=== PATIENT | male | born 1945 | race Caucasian/White ===

== ENCOUNTER 2016-10-02 17:22 | Outpatient (CLI) | payer OTHER ==
[2012-10-18 07:07] VITALS: TEMP 100
[2015-10-11 10:56] VITALS: BMI 29.7
== END 2016-10-02 17:23 | disposition home or self-care (01) ==
LOC: AMBL 17:22
PROVIDERS: ATTEND Emergency Medicine
DX: R50.9 Fever, unspecified (principal); R11.2 Nausea with vomiting, unspecified; R19.7 Diarrhea, unspecified; C43.9 Malignant melanoma of skin, unspecified

== ENCOUNTER 2016-10-03 13:58 | Outpatient (CLI) ==
[2012-10-18 07:07] VITALS: TEMP 100
[2015-10-11 10:56] VITALS: BMI 29.7
== END 2016-10-03 14:19 ==
LOC: AMBL 13:58
PROVIDERS: ATTEND Internal Medicine
DX: R50.9 Fever, unspecified (principal)

== ENCOUNTER 2017-10-14 09:01 | Emergency (ER) ==
[2017-10-14 09:06] VITALS: BP 196/80; TEMP 100.3; BMI 27.7
--- NOTE | 2017-10-14 09:20 | ED.PDOC ---
General ED Provider: Dr. ANSELMO KHANNA Chief Complaint: Tooth Problem Stated Complaint: DENTAL PAIN Time Seen by Physician: 09:04 Mode of Arrival: Walk-In Information Source: Patient Exam Limitations: No limitations Primary Care Provider: GILMAR MORALES Nursing and Triage Documentation Reviewed and Agree: Yes Reviewed sepsis parameters & appropriate labs ordered?: Yes System Inflammatory Response Syndrome: Not Applicable Sepsis Protocol: For patient's 13 years and over: Temp is 96.8 and below OR 101 and greater Pulse >90 BPM Resp >20/minute Acutely Altered Mental Status Are patient's symptoms suggestive of a new infection, such as: -Pneumonia -Skin, Soft Tissue -Endocarditis -UTI -Bone, Joint Infection -Implantable Device -Acute Abdominal Infection -Wound Infection -Meningitis -Blood Stream Catheter Infection -Unknown EENT Complaint Exam - Dental/Oral Complaint/Exam Mechanism of Injury: No known trauma Onset/Duration: 1 WEEK Symptoms Are: Still present Timing: Constant Initial Severity: Moderate Current Severity: Moderate Character: Reports: Dull, Aching Aggravating: Reports: Heat, Cold, Chewing Alleviating: Reports: None Associated Signs and Symptoms: Denies: Swelling, Discharge, Fever, Foul odor, Foul taste in mouth Related History: Reports: Similar episode Tooth Findings: Present: Normal findings Cervical Lymphadenopathy Present: No Facial Swelling Present: No Bleeding Present: No Oropharynx Findings: Absent: Clots, Active bleeding Septal Hematoma: No Foreign Body Present: No Dysphagia Present: No Drooling Present: No Asymmetrical Tonsillar Swelling Present: No Uvula Midline: Yes Kimberly-tonsillar Fluctuence: No Trismus Present: No Palatal Petechiae Present: No Scarlatinaform Rash Present: No Lesions: Absent: Lip, Gums, Tongue, Buccal Mucosa, Pharynx Exanthem: Absent: Lip, Gums, Tongue, Buccal Mucosa, Pharynx Vesicles: Absent: Lip, Gums, Tongue, Buccal Mucosa, Pharynx Teeth Picture: 1 - DECAY Differential Diagnoses: Dental Caries Review of Systems - Review Of Systems Constitutional: Reports: No symptoms Eyes: Reports: No symptoms Ears, Nose, Mouth, Throat: Reports: No symptoms Respiratory: Reports: No symptoms Cardiac: Reports: No symptoms GI: Reports: No symptoms : Reports: No symptoms Musculoskeletal: Reports: No symptoms Skin: Reports: No symptoms Neurological: Reports: No symptoms Endocrine: Reports: No symptoms Hematologic/Lymphatic: Reports: No symptoms All Other Systems: Reviewed and Negative Past Medical History - Past Medical History Previously Healthy: Yes Endocrine: Reports: Dyslipidemia Cardiovascular: Reports: [place], Hypertension Respiratory: Reports: None Hematological: Reports: None Gastrointestinal: Reports: None Genitourinary: Reports: None Neuro/Psych: Reports: None Musculoskeletal: Reports: None Cancer: Reports: None Other Pertinent Past Medical History: skin excision 3may and 3june"did not get it all" drain out 10/04"f" - Surgical History General Surgical History: Reports: Pacemaker (aicd), Other (INTERNAL DEFIB, MELANOMA) - Family History Family History: Reports: Unknown - Social History Smoking Status: Former smoker Hx Substance Use: No Alcohol Screening: None Physical Exam - Physical Exam Appearance: Well-appearing, No pain distress, Well-nourished Eyes: NEENA, EOMI, Conjunctiva clear ENT: Ears normal, Nose normal, Oropharynx normal Respiratory: Airway patent, Breath sounds clear, Breath sounds equal, Respirations nonlabored Cardiovascular: RRR, Pulses normal, No rub, No murmur GI/: Soft, Nontender, No masses, Bowel sounds normal, No Organomegaly Musculoskeletal: Normal strength, ROM intact, No edema, No calf tenderness Skin: Warm, Dry, Normal color Neurological: Sensation intact, Motor intact, Reflexes intact, Cranial nerves intact, Alert, Oriented Psychiatric: Affect appropriate, Mood appropriate Critical Care Note - Critical Care Note Total Time (mins): 0 Course - Course Vital Signs: Temp Pulse Resp BP Pulse Ox 10/14/17 09:02 100.3 F H 71 20 196/80 H 94 L Departure - Departure Time of Disposition: 09:21 Disposition: HOME SELF-CARE Discharge Problem: Toothache Instructions: Toothache (ED) Condition: Good Pt referred to PMD for follow-up: Yes IPMP verified?: No Additional Instructions: Please call your Family Physician as soon as possible to schedule a follow-up appointment. Prescriptions: Amoxicillin 500 mg PO Q8HR #21 tablet Hydrocodone/Acetaminophen [[place] 10-325 Tablet] 1 each PO Q8HR #12 tablet Allergies/Adverse Reactions: Allergies No Known Allergies Allergy (Verified 10/14/17 09:06) Home Medications: Ambulatory Orders Aspirin [Aspirin EC] 81 mg PO DAILY 10/18/12 Carvedilol [Coreg] 25 mg PO BIDBRS 10/18/12 Fenofibrate Nanocrystallized [Fenofibrate] 145 mg PO DAILY 10/18/12 Lisinopril 40 mg PO DAILY 10/18/12 Nitroglycerin [Nitrostat] 0.4 mg SL PRN PRN 10/18/12 Furosemide [Lasix Tab] 20 mg PO QDAC 10/11/15 Rosuvastatin Calcium 40 mg PO DAILY 10/11/15 Amoxicillin 500 mg PO Q8HR #21 tablet 10/14/17 Apixaban [Eliquis] 5 mg PO DAILY 10/14/17 Folic Acid 1 mg PO DAILY 10/14/17 Hydrocodone/Acetaminophen [[place] 10-325 Tablet] 1 each PO Q8HR #12 tablet
== END 2017-10-14 09:32 | disposition home or self-care (01) ==
LOC: ED 09:01
DX: K08.89 Other specified disorders of teeth and supporting structures (principal); K02.7 Dental root caries
CPT/HCPCS: 99282

== ENCOUNTER 2018-05-12 11:17 | Emergency (ER) | payer OTHER ==
[2018-05-12 11:22] VITALS: BP 130/77; TEMP 97.8; BMI 29.9
--- NOTE | 2018-05-12 11:29 | ED.PDOC ---
General ED Provider: Dr. MARIAJOSE PARKS-ER Chief Complaint: Tooth Problem Stated Complaint: my tooth hurts Time Seen by Physician: 11:27 Mode of Arrival: Walk-In Information Source: Patient Exam Limitations: No limitations Primary Care Provider: GILMAR [place] Nursing and Triage Documentation Reviewed and Agree: Yes Does patient meet sepsis criteria?: No System Inflammatory Response Syndrome: Not Applicable Sepsis Protocol: For patient's 13 years and over: Temp is 96.8 and below OR 101 and greater Pulse >90 BPM Resp >20/minute Acutely Altered Mental Status Are patient's symptoms suggestive of a new infection, such as: -Pneumonia -Skin, Soft Tissue -Endocarditis -UTI -Bone, Joint Infection -Implantable Device -Acute Abdominal Infection -Wound Infection -Meningitis -Blood Stream Catheter Infection -Unknown EENT Complaint Exam - Dental/Oral Complaint/Exam Mechanism of Injury: No known trauma Onset/Duration: several days Symptoms Are: Still present Timing: Constant Initial Severity: Mild Current Severity: Moderate Location: right upper premolar Character: Reports: Dull, Aching, Throbbing Alleviating: Reports: None Associated Signs and Symptoms: Reports: Swelling, Discharge. Denies: Fever, Foul odor, Foul taste in mouth Related History: Reports: Previous tooth problem Facial Swelling Present: No Bleeding Present: No Oropharynx Findings: Absent: Clots, Active bleeding Septal Hematoma: No Foreign Body Present: No Dysphagia Present: No Drooling Present: No Asymmetrical Tonsillar Swelling Present: No Uvula Midline: Yes Kimberly-tonsillar Fluctuence: No Trismus Present: No Differential Diagnoses: Dental Abcess Review of Systems - Review Of Systems Constitutional: Reports: No symptoms Eyes: Reports: No symptoms Ears, Nose, Mouth, Throat: Reports: Mouth pain, Mouth swelling Respiratory: Reports: No symptoms Cardiac: Reports: No symptoms GI: Reports: No symptoms : Reports: No symptoms Musculoskeletal: Reports: No symptoms Skin: Reports: No symptoms Neurological: Reports: No symptoms Endocrine: Reports: No symptoms Hematologic/Lymphatic: Reports: No symptoms All Other Systems: Reviewed and Negative Past Medical History - Past Medical History Previously Healthy: Yes Endocrine: Reports: Dyslipidemia Cardiovascular: Reports: [place], Hypertension Respiratory: Reports: None Hematological: Reports: None Gastrointestinal: Reports: None Genitourinary: Reports: None Neuro/Psych: Reports: None Musculoskeletal: Reports: None Cancer: Reports: None Other Pertinent Past Medical History: skin excision 3may and 3june"did not get it all" drain out 10/04"f" - Surgical History General Surgical History: Reports: Pacemaker (aicd), Other (INTERNAL DEFIB, MELANOMA) - Family History Family History: Reports: Unknown - Social History Smoking Status: Former smoker Hx Substance Use: No Alcohol Screening: None Physical Exam - Physical Exam Appearance: Well-appearing, No pain distress, Well-nourished Pain Distress: Mild Eyes: NEENA ENT: Ears normal, Nose normal, Oropharynx normal (right upper premolar is tender to palpation with erythematous gums) Neck: Supple Respiratory: Airway patent Cardiovascular: RRR GI/: Soft, Nontender, No masses, Bowel sounds normal, No Organomegaly Musculoskeletal: Normal strength, ROM intact, No edema, No calf tenderness Skin: Warm, Dry, Normal color Neurological: Sensation intact, Motor intact, Reflexes intact, Cranial nerves intact, Alert, Oriented Psychiatric: Affect appropriate, Mood appropriate Critical Care Note - Critical Care Note Total Time (mins): 0 Course - Course Vital Signs: Temp Pulse Resp BP Pulse Ox 05/12/18 11:18 97.8 F 68 18 130/77 98 Departure - Departure Time of Disposition: 11:29 Disposition: HOME SELF-CARE Discharge Problem: Dental abscess Instructions: Dental Abscess (ED) Condition: Good Pt referred to PMD for follow-up: Yes IPMP verified?: No Additional Instructions: augmentin 875mg bid x 7 days---norco 5mg q 6hrs prn pain #10---f/u with dentist raul Allergies/Adverse Reactions: Allergies No Known Allergies Allergy (Verified 05/12/18 11:22) Home Medications: Ambulatory Orders Aspirin [Aspirin EC] 81 mg PO DAILY 10/18/12 Carvedilol [Coreg] 25 mg PO BIDBRS 10/18/12 Fenofibrate Nanocrystallized [Fenofibrate] 145 mg PO DAILY 10/18/12 Lisinopril 40 mg PO DAILY 10/18/12 Nitroglycerin [Nitrostat] 0.4 mg SL PRN PRN 10/18/12 Furosemide [Lasix Tab] 20 mg PO QDAC 10/11/15 Rosuvastatin Calcium 40 mg PO DAILY 10/11/15 Apixaban [Eliquis] 5 mg PO DAILY 10/14/17 Folic Acid 1 mg PO DAILY 10/14/17 Disposition Discussed With: Patient, Family
== END 2018-05-12 11:38 | disposition home or self-care (01) ==
LOC: ED 11:17
DX: K08.89 Other specified disorders of teeth and supporting structures (principal); K04.7 Periapical abscess without sinus
CPT/HCPCS: 99282

== ENCOUNTER 2018-09-16 14:26 | Emergency (ER) ==
[2018-09-16 14:33] VITALS: BP 158/78; TEMP 98.3; BMI 29.2
--- NOTE | 2018-09-16 16:11 | ED.PDOC ---
General ED Provider: Dr. ANSELMO KHANNA Chief Complaint: Finger Laceration Stated Complaint: laceration left index with a sharp glass Time Seen by Physician: 14:30 Mode of Arrival: Walk-In Information Source: Patient Exam Limitations: No limitations Primary Care Provider: GILMAR [place] Nursing and Triage Documentation Reviewed and Agree: Yes Does patient meet sepsis criteria?: No If yes, has appropriate treatment been initiated?: No System Inflammatory Response Syndrome: Not Applicable Sepsis Protocol: For patient's 13 years and over: Temp is 96.8 and below OR 101 and greater Pulse >90 BPM Resp >20/minute Acutely Altered Mental Status Are patient's symptoms suggestive of a new infection, such as: -Pneumonia -Skin, Soft Tissue -Endocarditis -UTI -Bone, Joint Infection -Implantable Device -Acute Abdominal Infection -Wound Infection -Meningitis -Blood Stream Catheter Infection -Unknown Skin Complaint Exam - Lac/Torso/Upper Ext. Complaint/Exam Location of Injury: Left (index ) Mechanism of Injury: Laceration Onset/Duration: today Symptoms Are: Still present Initial Severity: Mild Current Severity: None Aggravating: None Alleviating: None Associated Signs and Symptoms: Denies: Fever, Chills, Erythema, Numbness, Tingling Differential Diagnoses: Laceration Review of Systems - Review Of Systems Constitutional: Reports: No symptoms Eyes: Reports: No symptoms Ears, Nose, Mouth, Throat: Reports: No symptoms Respiratory: Reports: No symptoms Cardiac: Reports: No symptoms GI: Reports: No symptoms : Reports: No symptoms Musculoskeletal: Reports: No symptoms Skin: Reports: Other (laceration) Neurological: Reports: No symptoms Endocrine: Reports: No symptoms Hematologic/Lymphatic: Reports: No symptoms All Other Systems: Reviewed and Negative Past Medical History - Past Medical History Previously Healthy: Yes Endocrine: Reports: Dyslipidemia Cardiovascular: Reports: [place], Hypertension Respiratory: Reports: None Hematological: Reports: None Gastrointestinal: Reports: None Genitourinary: Reports: None Neuro/Psych: Reports: None Musculoskeletal: Reports: None Cancer: Reports: None Other Pertinent Past Medical History: skin excision 3may and 3june"did not get it all" drain out 6/"f" - Surgical History General Surgical History: Reports: Pacemaker (aicd), Other (INTERNAL DEFIB, MELANOMA) - Family History Family History: Reports: Unknown - Social History Smoking Status: Former smoker Hx Substance Use: No Alcohol Screening: None Physical Exam - Physical Exam Appearance: Well-appearing, No pain distress, Well-nourished Eyes: NEENA, EOMI, Conjunctiva clear ENT: Ears normal, Nose normal, Oropharynx normal Respiratory: Airway patent, Breath sounds clear, Breath sounds equal, Respirations nonlabored Cardiovascular: RRR, Pulses normal, No rub, No murmur GI/: Soft, Nontender, No masses, Bowel sounds normal, No Organomegaly Musculoskeletal: Normal strength, ROM intact (see photos full R.O.M NOTED ) Skin: Warm, Dry (3mmlac see photos ) Neurological: Sensation intact, Motor intact, Reflexes intact, Cranial nerves intact, Alert, Oriented Psychiatric: Affect appropriate, Mood appropriate Procedures - Laceration/Wound Repair No standard instances Wound Length (cm): 3MM Wound Width: 1MM Wound Depth: 1MM Wound Explored: Clean Wound Prep: Saline, Hibiclens Wound Repaired With: Dermabond Critical Care Note - Critical Care Note Total Time (mins): 0 Course - Course Vital Signs: Temp Pulse Resp BP Pulse Ox 09/16/18 14:26 98.3 F 69 18 158/78 H 96 Departure - Departure Time of Disposition: 16:10 Disposition: HOME SELF-CARE Discharge Problem: Laceration of finger Instructions: Laceration (ED), Skin Adhesive Care (ED) Condition: Good Pt referred to PMD for follow-up: Yes IPMP verified?: No Allergies/Adverse Reactions: Allergies No Known Allergies Allergy (Verified 09/16/18 15:12) Home Medications: Ambulatory Orders Aspirin [Aspirin EC] 81 mg PO DAILY 10/18/12 Carvedilol [Coreg] 25 mg PO BIDBRS 10/18/12 Fenofibrate Nanocrystallized [Fenofibrate] 145 mg PO DAILY 10/18/12 Lisinopril 40 mg PO DAILY 10/18/12 Nitroglycerin [Nitrostat] 0.4 mg SL PRN PRN 10/18/12 Furosemide [Lasix Tab] 20 mg PO QDAC 10/11/15 Rosuvastatin Calcium 40 mg PO DAILY 10/11/15 Apixaban [Eliquis] 5 mg PO DAILY 10/14/17 Folic Acid 1 mg PO DAILY 10/14/17
== END 2018-09-16 16:44 | disposition home or self-care (01) ==
LOC: ED 14:26
DX: S61.211A Laceration without foreign body of left index finger without damage to nail, initial encounter (principal); W25.XXXA Contact with sharp glass, initial encounter
CPT/HCPCS: 99283

== ENCOUNTER 2018-09-19 13:12 | Outpatient (CLI) ==
[2012-10-18 07:07] VITALS: TEMP 100
== END 2018-09-19 13:34 | disposition short-term general hospital (02) ==
LOC: AMBL 13:12
PROVIDERS: ATTEND Internal Medicine
DX: R07.9 Chest pain, unspecified (principal); R06.02 Shortness of breath; I25.2 Old myocardial infarction

== ENCOUNTER 2022-10-06 12:43 | Observation (INO) ==
[2022-10-06 13:47] LABS: BASOPHILS % (AUTO) 0.1 % (0.0-3.0); HEMATOCRIT 41.4 % (42.0-52.0); HEMOGLOBIN 14.4 g/dl (14.0-18.0); IMMATURE GRANULOCYTE % (AUTO) 0.4 % (0.0-5.0); LYMPHOCYTES # (AUTO) 0.2 K/uL (0.60-3.4); LYMPHOCYTES % (AUTO) 2.8 (10.0-50.0); MEAN CORPUSCULAR HEMOGLOBIN 30.1 pg (27.0-31.0); MEAN CORPUSCULAR HGB CONC 34.8 (31.8-35.4); MEAN CORPUSCULAR VOLUME 86.6 fl (80.0-94.0); MONOCYTES # (AUTO) 0.3 K/uL (0.4-2.0); MONOCYTES % (AUTO) 3.4 (0-10); NEUTROPHILS # (AUTO) 7.9 K/ul (2.0-6.9); NEUTROPHILS % (AUTO) 93.3 % (42.2-75.2); PLATELET COUNT 134 10^3/uL (140-440); RDW COEFFICIENT OF VARIATION 14.2 % (11.6-14.8); RED BLOOD COUNT 4.78 10^6/ul (4.70-6.10); WHITE BLOOD COUNT 8.46 K/ul (4.2-10.2)
[2022-10-06 13:49] LABS: ALANINE AMINOTRANSFERASE 26.3 U/L (0-50); ALBUMIN 3.75 g/dL (3.5-5.0); ALKALINE PHOSPHATASE 43.9 U/L (56-119); ASPARTATE AMINO TRANSFERASE 49.1 U/L (17-59); BILIRUBIN,TOTAL 2.08 mg/dL (0.2-1.3); BLOOD UREA NITROGEN 21.2 mg/dL (9-20); CALCIUM 8.58 mg/dL (8.4-10.2); CARBON DIOXIDE 22.6 mmol/L (22-30.0); CHLORIDE 103.7 mmol/L (98-107); CREATININE 1.93 mg/dL (0.60-1.10); GLUCOSE 119.5 mg/dL (74-106); POTASSIUM 3.3 mmol/L (3.5-5.1); SODIUM 134.7 mmol/L (134.5-145); TOTAL PROTEIN 6.61 g/dL (6.3-8.2)
--- NOTE | 2022-10-06 13:51 | DI ---
EXAM: FRONTAL VIEW OF THE CHEST. HISTORY: Chest pain. Fever. COMPARISON: Chest radiograph 10/20/2020. FINDINGS: Stable cardiac pacer/ICD. Normal heart size. Atherosclerotic calcifications of the aorta. Confluent opacities at the left lung base. No visible pleural effusion or pneumothorax. No acute osseous abnormality. Multilevel degenerative spondylosis. IMPRESSION: Left basilar opacities suspicious for pneumonia.
--- NOTE | 2022-10-06 14:07 | ED.PDOC ---
General ED Provider: Dr. JUANCHO KILPATRICK MD Chief Complaint: Non-specific Complaint Stated Complaint: chills Time Seen by Provider: 10/06/22 13:09 Information Source: Patient Primary Care Provider: JASON CARRANZA Nursing and Triage Documentation Reviewed and Agree: Yes Does patient meet sepsis criteria?: No System Inflammatory Response Syndrome: Not Applicable Sepsis Protocol: For patient's 13 years and over: Temp is 96.8 and below OR 101 and greater Pulse >90 BPM Resp >20/minute Acutely Altered Mental Status Are patient's symptoms suggestive of a new infection, such as: -Pneumonia -Skin, Soft Tissue -Endocarditis -UTI -Bone, Joint Infection -Implantable Device -Acute Abdominal Infection -Wound Infection -Meningitis -Blood Stream Catheter Infection -Unknown Review of Systems Review Of Systems Constitutional: Reports Chills All Other Systems: Reviewed and Negative [facility] Medical History (Updated 10/06/22 @ 19:56 by VIVI RODNEY, RN) 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) Cancer C80.1 - Malignant (primary) neoplasm, unspecified (ICD-10) Congestive heart failure I50.9 - Heart failure, unspecified (ICD-10) Hypercholesteremia E78.00 - Pure hypercholesterolemia, unspecified (ICD-10) Hypertension I10 - Essential (primary) hypertension (ICD-10) Family History (Updated 10/06/22 @ 19:56 by VIVI RODNEY, RN) Other No known health problems Social History Smoking and tobacco status: Former smoker Surgical History History of heart surgery Z98.890 - Other specified postprocedural states (ICD-10) History of heart surgery Z98.890 - Other specified postprocedural states (ICD-10) Implantation of cardiac pacemaker Placement of stent in coronary artery Physical Exam Physical Exam Appearance: Reports Well-appearing Ill-appearing: None Pain Distress: None Eyes: Reports NEENA and EOMI ENT: Reports Ears normal and Nose normal Neck: Supple Respiratory: Reports Airway patent, Breath sounds clear and Breath sounds equal Cardiovascular: Reports RRR, Pulses normal, No rub and No murmur GI/: Reports Soft, Nontender, No masses and Bowel sounds normal Musculoskeletal: Reports Normal strength and ROM intact Skin: Reports Warm and Normal color Neurological: Reports Sensation intact and Motor intact Psychiatric: Reports Affect appropriate Interpretation EKG Interpretation Time of EKG #1: 13:27 Rate: Normal Rhythm: Other (vent paced) Ectopy: PVCs [place]: NL Interpretation: no acute ischemia EKG Interpretation By: ED Physician Critical Care Note Critical Care Note Total Critical Care Time (mins): 0 Course Course 10/06/22 13:27 10/06/22 13:27 Orders, Labs, Meds: Lab Review 10/06/22 10/06/22 13:27 16:55 WBC 8.46 RBC 4.78 Hgb 14.4 Hct 41.4 L MCV 86.6 MCH 30.1 MCHC 34.8 RDW Coeff of Tariq 14.2 Plt Count 134 L Immature Gran % (Auto) 0.4 Neut % (Auto) 93.3 H Lymph % (Auto) 2.8 L [place] % (Auto) 3.4 Eos % (Auto) 0.0 Baso % (Auto) 0.1 Neut # (Auto) 7.9 H Lymph # (Auto) 0.2 L [place] # (Auto) 0.3 L Eos # (Auto) 0.0 Baso # (Auto) 0.0 Immature Gran # (Auto) 0.0 Sodium 134.7 Potassium 3.30 L Chloride 103.7 Carbon Dioxide 22.6 Anion Gap 11.70 BUN 21.2 H Creatinine 1.93 H Estimated GFR (MDRD) 34.00 BUN/Creatinine Ratio 10.98 Glucose 119.5 H Calcium 8.58 Total Bilirubin 2.08 H AST 49.1 ALT 26.3 Alkaline Phosphatase 43.9 L Total Protein 6.61 Albumin 3.75 Globulin 2.86 Albumin/Globulin Ratio 1.31 Urine Color [place] Urine Clarity Clear Urine pH 5.5 Ur Specific [place] 1.020 Urine Protein 1+ H Urine Glucose (UA) Negative Urine Ketones Negative Urine Blood 2+ H Urine Nitrite Positive H Urine Bilirubin 1+ H Urine Urobilinogen 2.0 H Ur Leukocyte Esterase 1+ H Urine Microscopic RBC 10-20 Urine Microscopic WBC 2-5 Ur Squamous Epith Cells 0-2 Urine Bacteria 2+ Granular Casts 0-2 Orders Category Date Time Status ADMIT OBSERVATION [PLACE PATIENT OBSERVATION] .TO ADMISSION 10/06/22 17:17 Active MEDSURG (MONITORED BED) EKG-(ED ONLY) Stat CARDIO 10/06/22 13:18 Completed NPO REMINDER: IMAGING ONCE CARE 10/06/22 15:16 Completed TELEMETRY MONITORING TELE CARE 10/06/22 17:17 Active CBC W/ AUTO DIFF Stat LAB 10/06/22 13:27 Completed CMP [COMPREHENSIVE METABOLIC PANEL] Stat LAB 10/06/22 13:27 Completed URINALYSIS C & S IF INDICATED Stat LAB 10/06/22 16:55 Completed URINE CULTURE Stat LAB 10/06/22 16:55 Received Azithromycin Inj [Zithromax] 500 mg Meds 10/06/22 15:13 Discontinued 0.9 % Sodium Chloride [Sodium Chloride] 250 ml IV ONCE Ceftriaxone/D5w 1 gm Premix [Rocephin 1 gm/50 ml D5w] Meds 10/06/22 15:15 Discontinued 1 gm in 50 ml IV ONCE Potassium Chloride [K-Dur] Meds 10/06/22 15:12 Discontinued 40 meq PO ONCE ONE Sodium Chloride 0.9% [Sodium Chloride] 1,000 ml Meds 10/06/22 16:[address] ABDOMEN/PELVIS WO CONTRAST Stat RADS 10/06/22 16:34 Completed CXR [CHEST, 1V AP ONLY] Stat RADS 10/06/22 13:18 Completed U/S ABDOMEN RT UPPER QUAD Stat RADS 10/06/22 15:16 Completed Medications Generic Name Dose Route Start Last Admin Trade Name Freq PRN Reason Stop Dose Admin Apixaban 5 mg 10/06/22 23:00 10/06/22 23:13 Apixaban 5 Mg Tab PO 5 mg BID KARAN Administration Carvedilol 25 mg 10/06/22 23:00 10/06/22 23:13 Carvedilol 12.5 Mg Tablet PO 25 mg BIDAC KARAN Administration Lactated Ringer's 1,000 mls @ 100 mls/hr 10/06/22 19:30 10/06/22 19:57 Lactated Ringers IV 100 mls/hr .Q10H KARAN Administration Rosuvastatin Calcium 40 mg 10/07/22 09:00 Rosuvastatin Calcium 10 Mg Tablet PO DAILY KARAN Discontinued Medications Generic Name Dose Route Start Last Admin Trade Name Freq PRN Reason Stop Dose Admin CEFTRIAXONE/D5W 1 GM PREMIX 1 gm in 50 mls @ 75 mls/hr 10/06/22 15:15 10/06/22 15:23 Rocephin 1 Gm/50 Ml D5w IV 10/06/22 15:54 75 mls/hr ONCE ONE Administration Azithromycin 500 mg/ Sodium 250 mls @ 125 mls/hr 10/06/22 15:13 10/06/22 15:21 Chloride IV 10/06/22 17:12 125 mls/hr ONCE STA Administration Sodium Chloride 1,000 mls @ 1,000 mls/hr 10/06/22 16:34 10/06/22 16:35 Sodium Chloride IV 10/06/22 17:33 1,000 mls/hr BOLUS STA Administration Potassium Chloride 40 meq 10/06/22 15:12 10/06/22 15:18 Potassium Chloride 20 Meq Tab PO 10/06/22 15:13 40 meq ONCE ONE Administration Vital Signs: Temp Pulse Resp BP Pulse Ox 10/06/22 12:45 98 F 76 19 124/63 95 76 years old male coming to the ER from home for chills. Patient reports that when he goes outside his house he feels some chills with shivering he had one episode of feeling hot at home but did not check his temperature. Otherwise he denies any chest pain, shortness of breath, cough, sore throat, nausea, vomiting, diarrhea, or changes in the urine.Chest x-ray showed possible pneumonia patient was given Rocephin/azithromycin IV and is no leukocytosis patient also had acute on chronic renal failure creatinine 1.93 BUN 21 last creatinine was 1.4 urinalysis showed urinary tract infection called hospitalist Lola discussed the patient condition with her in order to admit the patient for IV antibiotics for UTI and hydration for acute on chronic renal failure and she accepted admitting the patient to her services Discharge Plan Discharge Patient Disposition: ADMITTED INPATIENT Discharge Problem: Acute UTI, Acute on chronic kidney failure, Pneumonia Did you review [place] [employer] for ALL controlled substances?: Not Applicable ED Provider: JUANCHO KILPATRICK Condition: Poor Physician Progress Note: []
[2022-10-06] MEDS ORDERED: K-DUR PO ONE (15:12)
[2022-10-06] MEDS ORDERED: ZITHROMAX 500 MG in SODIUM CHLORIDE 250 ML IV STA (15:13)
[2022-10-06] MEDS ORDERED: ROCEPHIN 1 GM/50 ML D5W 1 GM/50 ML BAG IV ONE (15:15)
--- NOTE | 2022-10-06 16:09 | US ---
EXAM: RIGHT UPPER QUADRANT ULTRASOUND HISTORY: Right upper quadrant abdominal pain. TECHNIQUE: Manuel scale and color Doppler imaging of the right upper quadrant of the abdomen was perfor med. FINDINGS: Pancreas: Not diagnostically visualized/evaluated. Liver: 12.5 cm Echogenic liver consistent with diffuse fatty infiltration or other parenchymal disea se. No focal lesion. Main portal vein: Normal antegrade flow. Gallbladder: not dilated. The wall is normal. Gallstones are not present. No pericholecystic fluid . Negative sonographic Purdy's sign. Biliary: Common bile duct measures mm. No duct dilation. Right Kidney: 9.2 cm No hydronephrosis. No lesions. No calculus. IVC: Patent on color Doppler.No abnormality on michel scale imaging. Other: No ascites. IMPRESSION: 1. No acute abnormalities are seen within the right upper quadrant of the abdomen. 2. Echogenic liver consistent with diffuse fatty infiltration or other parenchymal disease. 3. Limitations as above.
[2022-10-06] MEDS ORDERED: SODIUM CHLORIDE 1,000 ML IV STA (16:34)
[2022-10-06 17:00] LABS: BILIRUBIN,URINE 1+ (NEGATIVE); CLARITY,URINE Clear (CLEAR); COLOR,URINE Orange (YELLOW); GLUCOSE, URINE (UA) Negative (NEGATIVE); KETONES,URINE Negative (NEGATIVE); LEUKOCYTE ESTERASE ,URINE 1+ (NEGATIVE); NITRITE,URINE Positive (NEGATIVE); PH,URINE 5.5 (5-9); PROTEIN,URINE 1+ (NEGATIVE); URINE, BLOOD 2+ (NEGATIVE)
[2022-10-06 17:06] LABS: SQUAMOUS EPITHELIAL CELL,UR 0-2 (0-5)
[2022-10-06 17:07] LABS: BACTERIA,URINE 2+ (NOT PRESENT); GRANULAR CASTS,URINE 0-2 (NOT PRESENT)
--- NOTE | 2022-10-06 17:10 | CT ---
EXAM: CT ABDOMEN AND PELVIS HISTORY: Urinary retention TECHNIQUE: CT abdomen and pelvis without intravenous contrast. Images were reconstructed using 5 mm section thickness. Reformations were prepared. COMPARISON: 10/18/2012 FINDINGS: There is fatty infiltration of the liver. Gallbladder is unremarkable. No biliary dilat ation or pancreatic pathology. Spleen and adrenal glands are normal. Mild nonspecific perinephric f at stranding bilaterally. There is no nephrolithiasis, hydronephrosis or ureteral calculus/obstructi on. Urinary bladder has mild circumferential wall thickening. No noticeable prostate enlargement. There is moderate atherosclerotic disease. Normal stomach and appendix. Normal bowel gas pattern. There is no ascites or free air. Small fatty right inguinal hernia without complication. Bones reve al moderate degenerative changes of the spine and sacroiliac joints. Lung bases are free of acute in filtrate. IMPRESSION: 1. Fatty liver. 2. There is no nephrolithiasis, hydronephrosis or ureteral calculus/obstruction. Urinary bladder kang s mild circumferential wall thickening. No noticeable prostate enlargement. 3. Moderate atherosclerotic disease. 4. Normal bowel gas pattern. - - - - - All CT scans are performed using dose optimization techniques as appropriate to the performed exam an d include at least one of the following: Automated exposure control, adjustment of the mA and/or kV according t o size, and the use of iterative reconstruction technique.
[2022-10-06 18:34] VITALS: BMI 33.3
--- NOTE | 2022-10-06 19:24 | CT ---
EXAM: CT THORAX HISTORY: Suspect left base pneumonia. TECHNIQUE: CT thorax without intravenous contrast. Multiplanar images presented. COMPARISON: 10/17/2019 CT FINDINGS: Mild cardiomegaly. No pericardial effusion. There is moderate atherosclerotic disease inc luding coronary artery calcifications. Pacemaker unit noted. Scattered prominent mediastinal and bi lateral axillary lymph nodes appear similar to that previously seen. There are a few thin discoid op acities in the lung bases slightly more noticeable on the left which probably represent atelectasis o r scarring. No definite consolidated pneumonia or acute infiltrate. There is no vascular congestion or pleural fluid. The bones reveal bridging osteophytic spurring of the thoracic spine. IMPRESSION: 1. Mild cardiomegaly. 2. Moderate atherosclerotic disease including coronary artery calcifications. 3. Scattered prominent mediastinal and bilateral axillary lymph nodes appear similar to that previou sly seen. 4. There are a few thin discoid opacities in the lung bases slightly more noticeable on the left whi ch probably represent atelectasis or scarring. No definite consolidated pneumonia. - - - - - All CT scans are performed using dose optimization techniques as appropriate to the performed exam an d include at least one of the following: Automated exposure control, adjustment of the mA and/or kV according t o size, and the use of iterative reconstruction technique.
[2022-10-06] MEDS: LACTATED RINGERS 1,000 ML IV SCH (19:57)
[2022-10-06] MEDS: COREG PO SCH (23:13)
[2022-10-06] MEDS: ELIQUIS PO SCH (23:13)
[2022-10-07] MEDS: LACTATED RINGERS 1,000 ML IV SCH (05:07)
[2022-10-07] MEDS: COREG PO SCH (05:32)
[2022-10-07 06:00] LABS: BASOPHILS % (AUTO) 0.6 % (0.0-3.0); EOSINOPHILS % (AUTO) 0.8 % (0.0-7.0); HEMATOCRIT 39.9 % (42.0-52.0); HEMOGLOBIN 13.8 g/dl (14.0-18.0); IMMATURE GRANULOCYTE % (AUTO) 0.2 % (0.0-5.0); LYMPHOCYTES # (AUTO) 0.4 K/uL (0.60-3.4); LYMPHOCYTES % (AUTO) 7.9 (10.0-50.0); MEAN CORPUSCULAR HEMOGLOBIN 30.3 pg (27.0-31.0); MEAN CORPUSCULAR HGB CONC 34.6 (31.8-35.4); MEAN CORPUSCULAR VOLUME 87.5 fl (80.0-94.0); MONOCYTES # (AUTO) 0.4 K/uL (0.4-2.0); MONOCYTES % (AUTO) 7.5 (0-10); NEUTROPHILS # (AUTO) 4.4 K/ul (2.0-6.9); PLATELET COUNT 121 10^3/uL (140-440); RDW COEFFICIENT OF VARIATION 14.3 % (11.6-14.8); RED BLOOD COUNT 4.56 10^6/ul (4.70-6.10); WHITE BLOOD COUNT 5.31 K/ul (4.2-10.2)
[2022-10-07 06:04] LABS: ALANINE AMINOTRANSFERASE 31.9 U/L (0-50); ALBUMIN 3.32 g/dL (3.5-5.0); ALKALINE PHOSPHATASE 43.6 U/L (56-119); BILIRUBIN,TOTAL 1.32 mg/dL (0.2-1.3); BLOOD UREA NITROGEN 18.6 mg/dL (9-20); CALCIUM 8.06 mg/dL (8.4-10.2); CARBON DIOXIDE 22.7 mmol/L (22-30.0); CHLORIDE 107.8 mmol/L (98-107); CREATININE 1.31 mg/dL (0.60-1.10); GLUCOSE 114.8 mg/dL (74-106); POTASSIUM 3.63 mmol/L (3.5-5.1); SODIUM 136.9 mmol/L (134.5-145); TOTAL PROTEIN 6.02 g/dL (6.3-8.2)
[2022-10-07] MEDS: ELIQUIS PO SCH (08:20)
[2022-10-07] MEDS ORDERED: ROCEPHIN 1 GM/50 ML D5W 1 GM/50 ML BAG IV ONE (08:40)
[2022-10-07] MEDS ORDERED: MICRO-K CAP PO SCH (09:00)
[2022-10-07] MEDS ORDERED: ENTRESTO 24 MG-26 MG TABLET PO SCH (09:00)
[2022-10-07] MEDS ORDERED: CRESTOR PO SCH (09:00)
[2022-10-07] MEDS ORDERED: LASIX TAB PO SCH (09:00)
[2022-10-07] MEDS ORDERED: K-DUR PO SCH (09:00)
--- NOTE | 2022-10-07 10:38 | PCM.SS ---
Provider Provider: GRIFFIN BURCIAGA PA-C, [facility] Admission Date Admission Date: 10/06/22 Discharge Date Discharge Date: 10/07/22 Primary Care Physician Primary Care Physician: JASON CARRANZA Chief Complaint Reason For Visit: PNEUMONIA, DEHYDRATION History of Present Illness History of Present Illness: Admitted 10/06/22 17:41, this 76 year old /WHITE/M with past medical history of hypertension, hyperlipidemia, COPD, heart failure, chronic anticoagulation who presented to the ER with complaint of chills. He states that he was outside and noticed he was shivering. He went inside and took a nap. And then he felt very hot. So he went back outside and began to shiver again. He did not check his temperature. He is unsure of if he was running a fever. He denies chest pain, shortness of breath, cough, urinary symptoms. He did complain of abdominal pain in the ER. Ultrasound of right upper quadrant and CT abdomen pelvis was negative for any acute findings. Chest x-ray did note left lower lobe pneumonia. He was given Rocephin and azithromycin and some fluids. He was admitted to [facility]. 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) Cancer C80.1 - Malignant (primary) neoplasm, unspecified (ICD-10) Congestive heart failure I50.9 - Heart failure, unspecified (ICD-10) Hypercholesteremia E78.00 - Pure hypercholesterolemia, unspecified (ICD-10) Hypertension I10 - Essential (primary) hypertension (ICD-10) Surgical History History of heart surgery Z98.890 - Other specified postprocedural states (ICD-10) History of heart surgery Z98.890 - Other specified postprocedural states (ICD-10) Implantation of cardiac pacemaker Placement of stent in coronary artery Family History Other No known health problems Social History Smoking and tobacco status: Former smoker Medications Mecications: Medications at Discharge (Home Meds & RX) carvedilol 12.5 mg tablet 25 mg PO BIDBRS 10/18/12 fenofibrate nanocrystallized 145 mg tablet 145 mg PO DAILY 10/18/12 furosemide 20 mg tablet 20 mg PO QDAC 10/11/15 rosuvastatin 40 mg tablet 40 mg PO DAILY 10/11/15 apixaban 5 mg tablet (Eliquis) 5 mg PO BID 10/14/17 folic acid 1 mg tablet 1 mg PO DAILY 10/14/17 cholecalciferol (vitamin D3) 50 mcg (2,000 unit) capsule 50 mcg PO DAILY 10/06/22 ferrous sulfate 325 mg (65 mg iron) tablet 325 mg PO BID 10/06/22 fluticasone 250 mcg-salmeterol 50 mcg/dose blistr powdr for inhalation 1 inh inhalation BID 10/06/22 ipratropium 20 mcg-albuterol 100 mcg/actuation mist for inhalation 1 puff inhalation Q6H 10/06/22 potassium chloride 20 mEq tablet,extended release 10 meq PO DAILY 10/06/22 sacubitril 49 mg-valsartan 51 mg tablet (Entresto) 0.5 tab PO BID 10/06/22 cephalexin 500 mg capsule 500 mg PO TID uti #21 caps 10/07/22 Allergies Allergies Allergy/AdvReac Type Severity Reaction Status Date / Time No Known Allergies Allergy Verified 10/17/19 07:03 Review of Systems Constitutional: Reports Chills; Denies Fever, Fatigue or Weakness Head: Reports Normocephalic and Atraumatic Eyes: Denies Vision Changes Ears: Denies Pain or Drainage Nose: Denies Post Nasal Drip or Congestion Mouth: Denies Sores Throat: Denies Sore Throat or Difficulty Swallowing Cardiovascular: Denies Chest pain, Chest Pressure or Edema Respiratory: Denies Cough, Shortness of air, Wheeze or Pain with breathing Gastrointestinal: Denies Nausea, Vomiting, Diarrhea or Abdominal pain Genitourinary: Reports Incontinent Bladder; Denies Dysuria, Hematuria or Frequency Dermatologic: Denies Rashes Neurological: Denies Headache, Dizziness, Syncope, Loss of Conciousness, Seizure or Weakness Psychiatric: Denies Depression or Anxiety Physical Examination Appearance: Positive Well-appearing, Well-nourished, No Apparent Distress and Alert and Oriented x3 Head: Positive Normocephalic and Atraumatic Neck: Positive Supple and Trachea Midline Heart: Positive RRR Respiratory: Positive Airway patent and Breath Sounds Clear, Bilaterally; Negative Crackles, Rhonchi or Wheezes GI/: Positive Soft, Nontender, Bowel sounds normal and No Distention Extremities: Negative Edema Neurological: Positive Cranial nerves intact, Alert and Oriented Psychiatric: Positive Normal Judgement, Normal Insight, Affect Appropriate and Mood Appropriate Vital Signs (Last 4 Hours) Vital Signs Last 4 Hours: Vital Signs: Last 4 Hours 10/07/22 07:00 10/07/22 08:00 Respiratory Rate 20 Oxygen Delivery Method Room Air Telemetry Type Remote Telemetry Telemetry Monitoring Continues Telemetry Heart Rate 70 EKG NV Interval 0.16 EKG QRS Interval 0.10 Telemetry Strip Reading SR Labs This Visit Labs This Visit: Labs This Visit 10/06/22 10/06/22 10/07/22 13:27 16:55 05:35 WBC 8.46 5.31 RBC 4.78 4.56 L Hgb 14.4 13.8 L Hct 41.4 L 39.9 L MCV 86.6 87.5 MCH 30.1 30.3 MCHC 34.8 34.6 RDW Coeff of Tariq 14.2 14.3 Plt Count 134 L 121 L Immature Gran % (Auto) 0.4 0.2 Neut % (Auto) 93.3 H 83.0 H Lymph % (Auto) 2.8 L 7.9 L [place] % (Auto) 3.4 7.5 Eos % (Auto) 0.0 0.8 Baso % (Auto) 0.1 0.6 Neut # (Auto) 7.9 H 4.4 Lymph # (Auto) 0.2 L 0.4 L [place] # (Auto) 0.3 L 0.4 Eos # (Auto) 0.0 0.0 Baso # (Auto) 0.0 0.0 Immature Gran # (Auto) 0.0 0.0 Sodium 134.7 136.9 Potassium 3.30 L 3.63 Chloride 103.7 107.8 H Carbon Dioxide 22.6 22.7 Anion Gap 11.70 10.03 BUN 21.2 H 18.6 Creatinine 1.93 H 1.31 H D Estimated GFR (MDRD) 34.00 53.00 BUN/Creatinine Ratio 10.98 14.19 Glucose 119.5 H 114.8 H Calcium 8.58 8.06 L Total Bilirubin 2.08 H 1.32 H AST 49.1 61.0 H ALT 26.3 31.9 Alkaline Phosphatase 43.9 L 43.6 L Total Protein 6.61 6.02 L Albumin 3.75 3.32 L Globulin 2.86 2.70 Albumin/Globulin Ratio 1.31 1.22 Urine Color Turner Urine Clarity Clear Urine pH 5.5 Ur Specific [place] 1.020 Urine Protein 1+ H Urine Glucose (UA) Negative Urine Ketones Negative Urine Blood 2+ H Urine Nitrite Positive H Urine Bilirubin 1+ H Urine Urobilinogen 2.0 H Ur Leukocyte Esterase 1+ H Urine Microscopic RBC 10-20 Urine Microscopic WBC 2-5 Ur Squamous Epith Cells 0-2 Urine Bacteria 2+ Granular Casts 0-2 Microbiology This Visit 10/06/22 16:55 Urine,Clean Catch Urine Culture - Preliminary Imaging Imaging: EXAM: FRONTAL VIEW OF THE CHEST. HISTORY: Chest pain. Fever. COMPARISON: Chest radiograph 10/20/2020. FINDINGS: Stable cardiac pacer/ICD. Normal heart size. Atherosclerotic calcifications of the aorta. Confluent opacities at the left lung base. No visible pleural effusion or pneumothorax. No acute osseous abnormality. Multilevel degenerative spondylosis. IMPRESSION: Left basilar opacities suspicious for pneumonia. EXAM: CT ABDOMEN AND PELVIS HISTORY: Urinary retention TECHNIQUE: CT abdomen and pelvis without intravenous contrast. Images were reconstructed using 5 mm section thickness. Reformations were prepared. COMPARISON: 10/18/2012 FINDINGS: There is fatty infiltration of the liver. Gallbladder is unremarkable. No biliary dilatation or pancreatic pathology. Spleen and adrenal glands are normal. Mild nonspecific perinephric fat stranding bilaterally. There is no nephrolithiasis, hydronephrosis or ureteral calculus/obstruction. Urinary bladder has mild circumferential wall thickening. No noticeable prostate enlargement. There is moderate atherosclerotic disease. Normal stomach and appendix. Normal bowel gas pattern. There is no ascites or free air. Small fatty right inguinal hernia without complication. Bones reveal moderate degenerative changes of the spine and sacroiliac joints. Lung bases are free of acute infiltrate. IMPRESSION: 1. Fatty liver. 2. There is no nephrolithiasis, hydronephrosis or ureteral calculus/obstruction. Urinary bladder has mild circumferential wall thickening. No noticeable prostate enlargement. 3. Moderate atherosclerotic disease. 4. Normal bowel gas pattern. EXAM: RIGHT UPPER QUADRANT ULTRASOUND HISTORY: Right upper quadrant abdominal pain. TECHNIQUE: Manuel scale and color Doppler imaging of the right upper quadrant of the abdomen was performed. FINDINGS: Pancreas: Not diagnostically visualized/evaluated. Liver: 12.5 cm Echogenic liver consistent with diffuse fatty infiltration or other parenchymal disease. No focal lesion. Main portal vein: Normal antegrade flow. Gallbladder: not dilated. The wall is normal. Gallstones are not present. No pericholecystic fluid. Negative sonographic Purdy's sign. Biliary: Common bile duct measures mm. No duct dilation. Right Kidney: 9.2 cm No hydronephrosis. No lesions. No calculus. IVC: Patent on color Doppler.No abnormality on michel scale imaging. Other: No ascites. IMPRESSION: 1. No acute abnormalities are seen within the right upper quadrant of the abdomen. 2. Echogenic liver consistent with diffuse fatty infiltration or other parenchymal disease. 3. Limitations as above. EXAM: CT THORAX HISTORY: Suspect left base pneumonia. TECHNIQUE: CT thorax without intravenous contrast. Multiplanar images presented. COMPARISON: 10/17/2019 CT FINDINGS: Mild cardiomegaly. No pericardial effusion. There is moderate atherosclerotic disease including coronary artery calcifications. Pacemaker unit noted. Scattered prominent mediastinal and bilateral axillary lymph nodes appear similar to that previously seen. There are a few thin discoid opacities in the lung bases slightly more noticeable on the left which probably represent atelectasis or scarring. No definite consolidated pneumonia or acute infiltrate. There is no vascular congestion or pleural fluid. The bones reveal bridging osteophytic spurring of the thoracic spine. IMPRESSION: 1. Mild cardiomegaly. 2. Moderate atherosclerotic disease including coronary artery calcifications. 3. Scattered prominent mediastinal and bilateral axillary lymph nodes appear similar to that previously seen. 4. There are a few thin discoid opacities in the lung bases slightly more noticeable on the left which probably represent atelectasis or scarring. No definite consolidated pneumonia. Review Review Statement: I have independently reviewed and interpreted the labs/EKGs/imaging that were ordered by the ER provider. I have reviewed all outside records that are available currently in our EMR including imaging/notes/labs from previous visits. Plan Reccomendations/Plan: 1. LA, stage I in setting of dehydration - LR at 100 ml/hrs overnight. Repeat CMP this morning showing baseline renal function. Stop fluids. Restart home meds 2. Suspect UTI - UC pending. Patient denies symptoms. Rocephin ordered. 3. CAP - CXR showed possible pna. Azith and rocephin given in ER. CT chest without showed no pneumonia. Ruled out. 4. CHF, unknown type - Suspect systolic based on medications, but no record to confirm. Will restart medications. Patient unsure why he's on a blood thinner. 5. Hypertension - Continue home meds 6. COPD - Continue home inhalers Patient's LA was resolved. He does have heart failure and so did not want to fluid overload patient, will restart home medications. Urine culture is currently pending however patient denies any symptoms. Rocephin was given but will plan on discharging on Keflex. Patient to follow-up with PCP for urine culture results. Patient initially thought in ER to have pneumonia. CT chest without showed no pneumonia at this time. Will not add additional antibiotics to cover that as he does not have symptoms of pneumonia as well. Infection markers are negative. And he has not ran a fever. He is feeling at his baseline and is in agreement with discharge to home. He does not have much help at home but he lives in an apartment complex and people check on him often. We will send Keflex to [facility] instead of [place] since it is the weekend. Patient agrees to plan of care. Additional Planning: Case discussed with ED Physician, Dr. Gordon Sayed. DVT Prophylaxis: Ambulation Time Spent: Greater than 80 minutes spent with patient, 50% of the time spent with this patient was devoted to counseling and coordination of care. [facility] minutes spent discussing advance care planning. FULL CODE Admit to: OBS Discussed Plan of Care with Dr. Lili Roper. If patient discharged with Left Ventricular Systolic Dysfunction: Assuming systolic based on medication regimen, but no records of recent echos Discharged with a beta kunal? Y Discharged with an jolly/arb? Y, entresto Review With Patient Reviewed with Patient and Family: Patient and family have been counseled on condition and care plan and have no immediate questions. I have personally discussed and reviewed the patient's visit/current labs/imaging/decision making with Dr. Lili Roper, my supervising attending. Total number of minutes spent with patient 85 min. More than 50% of the time spent with this patient was devoted to counseling and coordination of care. Time of Admission:10/06/22 17:41 Time of Discharge: 10/07/22 1045 Discharge Plan Discharge Discharge Orders: Discharge Patient (ONCE); Ordered 10/07/22 Ordered By: GRIFFIN BURCIAGA Activity Restrictions/Additional Instructions: DISCHARGE TO HOME DX: DEHYDRATION, UTI PHARMACY: [facility] DIET: HEART HEALTHY ACTIVITY: TOLERATED F/U WITH PCP IN 4-5 DAYS, URINE CULTURE PENDING NEW MEDICATION: KEFLEX 500MG BY MOUTH THREE TIMES A DAY FOR 7 DAYS CONTINUE ALL OTHER MEDICATIONS PREVIOUSLY PRESCRIBED Patient Disposition: HOME SELF-CARE Prescriptions: New cephalexin 500 mg capsule 500 mg PO TID Qty: 21 0RF Continued carvedilol 12.5 MG tablet 25 mg PO BIDBRS fenofibrate nanocrystallized 145 MG tablet 145 mg PO DAILY furosemide 20 MG tablet 20 mg PO QDAC rosuvastatin 40 MG tablet 40 mg PO DAILY potassium chloride 20 mEq tablet extended release 10 meq PO DAILY Entresto 49-51 mg tablet 0.5 tab PO BID cholecalciferol (vitamin D3) 50 mcg (2,000 unit) capsule 50 mcg PO DAILY ferrous sulfate 325 mg (65 mg iron) tablet 325 mg PO BID fluticasone propion-salmeterol 250-50 mcg/dose blister with device 1 inh inhalation BID ipratropium-albuterol 20-100 mcg/actuation mist 1 puff inhalation Q6H folic acid 1 MG tablet 1 mg PO DAILY Eliquis 5 MG tablet 5 mg PO BID Did you review [place] HISTORICAL GUIDE for ALL controlled substances?: Not Applicable Discussed opioids are addictive and Narcan is available by prescription or from pharmacy.: No Condition: Fair
[2022-10-07 10:41] VITALS: BP 127/66; RESP 18; TEMP 97.8
== END 2022-10-07 11:50 | disposition home or self-care (01) ==
LOC: MEDSURG B 12:43 → ED 12:43 → MEDSURG B 18:35
PROVIDERS: ADMIT Hospitalist; ATTEND Physician Assistant
DX: Z95.0 Presence of cardiac pacemaker; B96.1 Klebsiella pneumoniae [K. pneumoniae] as the cause of diseases classified elsewhere; J18.9 Pneumonia, unspecified organism; I50.23 Acute on chronic systolic (congestive) heart failure; N17.9 Acute kidney failure, unspecified; N39.0 Urinary tract infection, site not specified; K76.9 Liver disease, unspecified; J44.9 Chronic obstructive pulmonary disease, unspecified; E78.5 Hyperlipidemia, unspecified; I51.7 Cardiomegaly; I10 Essential (primary) hypertension; E86.0 Dehydration